=== PATIENT | male | born 2000 | race Caucasian/White ===

== ENCOUNTER 2022-09-04 19:16 | Emergency (ER) | payer BC ==
[~2022-09-04] VITALS: Ht 167.6 cm; Wt 81.8 kg
[2022-09-04 19:23] VITALS: BP 148/84; TEMP 101.8
[2022-09-04 19:58] LABS: STREP SCREEN POSITIVE
[2022-09-04] MEDS ORDERED: AMOXICILLIN 50500 MG PO (20:41)
[2022-09-04 20:49] VITALS: PULSE 96
[2022-09-05] MEDS ORDERED: CEPHALEXIN500 M1 PO (16:32)
== END 2022-09-04 20:50 | disposition home or self-care (01) ==
LOC: COL.ER 19:16
PROVIDERS: Nurse Practitioner
DX: J02.0 Streptococcal pharyngitis (principal); Z20.822 Contact with and (suspected) exposure to COVID-19